=== PATIENT | male | born 1955 | race Caucasian/White ===

== ENCOUNTER 2017-12-27 04:17 | Observation (INO) | payer MEDICAID, OTHER ==
[~2017-12-27] VITALS: Ht 180.3 cm; Wt 90.8 kg
[2017-12-27] MEDS ORDERED: LEVO75TA PO (04:25)
[2017-12-27] MEDS ORDERED: OMEP40CA6 PO (04:25)
[2017-12-27] MEDS ORDERED: TEST5GEL TD (04:25)
[2017-12-27] MEDS ORDERED: MORPHINE SULFATE 4 MG/ML, 1ML ONE ×3 (04:46→16:15)
[2017-12-27] MEDS ORDERED: ONDANSETRON ODT 4 MG ONE (04:46)
[2017-12-27] MEDS ORDERED: FAMOTIDINE 20 MG/2 ML ONE (04:46)
[2017-12-27] MEDS ORDERED: FAMOTIDINE 20 MG/2 ML IVP ONE (05:00)
[2017-12-27] MEDS ORDERED: ONDANSETRON ODT 4 MG PO ONE (05:00)
[2017-12-27] MEDS ORDERED: MORPHINE SULFATE 4 MG/ML, 1ML IVPush PRN ×2 (05:00→07:30)
[2017-12-27] MEDS ORDERED: SODIUM CHLORIDE FLUSH 10ML SYR IVF ONE (05:00)
[2017-12-27 05:28] LABS: BASOPHILS % (AUTO) 0 % (0-1); EOSINOPHILS # (AUTO) 0.02 x10^3/uL (0-0.4); EOSINOPHILS % (AUTO) 0 % (1-7); LYMPHOCYTES # (AUTO) 0.53 x10^3/uL (1-3.4); LYMPHOCYTES % (AUTO) 4 % (22-44); MD NO; MEAN CORPUSCULAR HEMOGLOBIN 31.1 pg (27.5-34.5); MEAN CORPUSCULAR HGB CONC 34.5 g/dL (33.2-36.2); MEAN CORPUSCULAR VOLUME 90.3 fL (81-97); MEAN PLATELET VOLUME 8.3 fL (7.4-10.4); MONOCYTES # (AUTO) 0.67 x10^3/uL (0.2-0.8); MONOCYTES % (AUTO) 5 % (2-9); NEUTROPHILS # (AUTO) 13.31 x10^3/uL (1.8-6.8); NEUTROPHILS % (AUTO) 92 % (42-75); PLATELET COUNT 336 x10^3/uL (130-400); RED BLOOD COUNT 4.98 x10^6/uL (4.38-5.82); RED CELL DISTRIBUTION WIDTH 13.3 % (9.4-14.8)
[2017-12-27 05:31] LABS: ALBUMIN 3.8 g/dL (3.4-5.0); ANION GAP 7 mmol/L (5-15); CALCIUM 8.5 mg/dL (8.5-10.1); CHLORIDE 103 mmol/L (98-107)
[2017-12-27 05:37] LABS: ALANINE AMINOTRANSFERASE 41 U/L (12-78); ALKALINE PHOSPHATASE 93 U/L (45-117); BILIRUBIN,TOTAL 0.4 mg/dL (0.2-1.0); CREATININE 1.23 mg/dL (0.7-1.3); TROPONIN I < 0.015 ng/mL (0.000-0.045)
[2017-12-27] MEDS ORDERED: OMNIPAQUE 350 MG/ML, 100ML BOTTLE ONE (06:43)
[2017-12-27] MEDS ORDERED: D5%-0.45% NACL 1,000 ML IV ONE (07:19)
[2017-12-27] MEDS ORDERED: ONDANSETRON 2MG/ML, 2ML IVPush PRN ×2 (07:30→16:00)
[2017-12-27] MEDS ORDERED: SODIUM CHLORIDE FLUSH 10ML SYR IVF PRN (07:30)
[2017-12-27] MEDS ORDERED: CEFOTETAN PMX 1GM/50ML 50 ML IV ONE (07:30)
[2017-12-27] MEDS ORDERED: MORPHINE SULFATE 4 MG/ML, 1ML IVPush ONE (08:30)
[2017-12-27 12:01] VITALS: BP 143/79
[2017-12-27] MEDS ORDERED: FENTANYL PF 250 MCG/5ML ONE (13:38)
[2017-12-27] MEDS ORDERED: MIDAZOLAM 1 MG/ML, 2ML ONE (13:38)
[2017-12-27] MEDS ORDERED: BUPIVACAINE/PF-EPI 0.5% 1:200K ONE (13:58)
[2017-12-27] MEDS ORDERED: GLYCOPYRROLATE 0.2MG/1ML, 5ML ONE (14:31)
[2017-12-27] MEDS ORDERED: CEFOTETAN 2 GM ONE (14:31)
[2017-12-27] MEDS ORDERED: NEOSTIGMINE 1 MG/ML, 10ML ONE (14:31)
[2017-12-27] MEDS ORDERED: PROPOFOL 10 MG/ML, 20ML ONE (14:31)
[2017-12-27] MEDS ORDERED: ROCURONIUM 10 MG/ML,10ML ONE (14:31)
[2017-12-27] MEDS ORDERED: SUCCINYLCHOLINE 20 MG/ML, 10ML ONE (14:31)
[2017-12-27] MEDS ORDERED: ONDANSETRON 2MG/ML, 2ML ONE (14:31)
[2017-12-27] MEDS ORDERED: DEXAMETHASONE 4 MG/ML, 1ML ONE (14:31)
[2017-12-27] MEDS ORDERED: OXYcodone 5 MG/5 ML ORAL.SOL UDC ONE (15:26)
[2017-12-27] MEDS ORDERED: FENTANYL PF 100 MCG/2ML ONE (15:26)
[2017-12-27] MEDS: FENTANYL PF 100 MCG/2ML IV PRN ×2 (15:39→15:50)
[2017-12-27] MEDS: MORPHINE SULFATE 4 MG/ML, 1ML IVPush PRN ×3 (15:48→16:16)
[2017-12-27] MEDS ORDERED: hydrALAzine 20 MG/ML, 1ML IV PRN (16:00)
[2017-12-27] MEDS ORDERED: KETOROLAC 30 MG/1 ML IV PRN (16:00)
[2017-12-27] MEDS ORDERED: OXYcodone 5 MG/5 ML ORAL.SOL UDC PO PRN (16:00)
[2017-12-27] MEDS ORDERED: LABETALOL 5MG/ML, 20ML IV PRN (16:00)
[2017-12-27] MEDS ORDERED: MEPERIDINE/PF 25MG/0.5ML IVPush PRN (16:00)
[2017-12-27] MEDS ORDERED: PROMETHAZINE 25 MG/ML, 1ML IV PRN (16:00)
[2017-12-27] MEDS ORDERED: HYDROmorphone 1 MG/ML, 1ML IV PRN ×2 (16:00→17:30)
[2017-12-27] MEDS ORDERED: ALBUTEROL SULFATE 2.5 MG/3 ML NPPB PRN (16:00)
[2017-12-27] MEDS ORDERED: METOCLOPRAMIDE 5 MG/ML, 2ML IV PRN (16:00)
[2017-12-27] MEDS ORDERED: KETOROLAC 30 MG/1 ML ONE (16:07)
[2017-12-27] MEDS ORDERED: HYDROmorphone 2 MG/ML, 1ML ONE (16:15)
[2017-12-27] MEDS ORDERED: LACTATED RINGERS 1,000 ML IV SCH (17:30)
[2017-12-27] MEDS ORDERED: morphine SULFATE 10 MG/ML, 1ML IV PRN (17:30)
[2017-12-27] MEDS ORDERED: OXYcodone/APAP 5/325MG TABLET PO PRN (17:30)
[2017-12-27] MEDS ORDERED: ONDANSETRON 2MG/ML, 2ML IV PRN (17:30)
[2017-12-27 21:06] VITALS: BP 139/78
== END 2017-12-27 22:30 | disposition home or self-care (01) ==
LOC: ED 05:46 → EDIP 07:19 → INTOOBSV 07:19 → 4WST 08:05
PROVIDERS: ADMIT Surgery; ATTEND Surgery
DX: K35.891 Other acute appendicitis without perforation, with gangrene (principal); K65.9 Peritonitis, unspecified; K21.9 Gastro-esophageal reflux disease without esophagitis; E03.9 Hypothyroidism, unspecified; Z88.8 Allergy status to other drugs, medicaments and biological substances
CPT/HCPCS: 36415; 44970; 74177; 76700; 80053; 83690; 84484; 85025; 88304; 93005; 96365; 96374; 96375; 96376; 99285; G0378; J0330; J1100; J1885; J2250; J2405; J2704; J2710; J3010; J3490; Q0162; Q9967; S0028; S0074